=== PATIENT | male | born 1930 | race Caucasian/White ===

== ENCOUNTER 2017-08-15 07:15 | Day surgery (SDC) | payer OTHER ==
[~2017-08-15] VITALS: Ht 180.3 cm; Wt 88.0 kg
[2017-08-15] VITALS (9 sets, daily range): BP systolic 127–167; BP diastolic 65–93
[~2017-08-15 07:15] MED LIST: ceFAZolin sod 1gm in NS 55ml IVPB ONE
[2017-08-15] MEDS ORDERED: Sterile Water Irrig 1000ml IRRIG ONE (07:16)
[2017-08-15] MEDS ORDERED: Lidocaine 1% MPF 10mg/ml 5ml ONE (07:16)
[2017-08-15] MEDS ORDERED: Midazolam 2mg/2ml Inj ONE (07:16)
[2017-08-15] MEDS ORDERED: LR 1000ml ONE (07:16)
[2017-08-15] MEDS ORDERED: Neostigmine 1mg/ml 10ml Inj ONE (07:16)
[2017-08-15] MEDS ORDERED: Propofol 200mg/20ml IV ONE (07:16)
[2017-08-15] MEDS ORDERED: Zemuron 50mg/5ml Inj IV ONE (07:16)
[2017-08-15] MEDS ORDERED: fentaNYL 100 mcg/2 mL IV ONE (07:16)
[2017-08-15] MEDS ORDERED: Glycopyrrolate 0.2mg/ml 1ml Vial ONE (07:16)
[2017-08-15] MEDS ORDERED: NS Irrig 1000ml ONE (07:16)
--- NOTE | 2017-08-15 07:51 | Anethesia Preoperative Eval ---
Anesthesia Pre-op PMH/ROS General Date of Evaluation: Aug 15, 2017 Anesthesiologist: Levi ASA Score: ASA 3 Mallampati Score Class I : Soft palate, uvula, fauces, pillars visible Class II: Soft palate, uvula, fauces visible Class III: Soft palate, base of uvula visible Class IV: Only hard plate visible Mallampati Classification: Class III Surgeon: Jose Juan Diagnosis: Deviated septum Surgical Procedure: septoplasty SMR/TURBS Anesthesia History: none Family History: no anesthesia problems Allergies: Coded Allergies: Horse Serum Proteins (Unverified Allergy, Unknown, 08/15/17) not known reaction. Patient was just told when he was in the service Medications: see eMAR Past Medical History Cardiovascular: Reports: HTN, CAD - s/p stents x1, other - HLD, Denies: NC, valve dz, arrhythmia Pulmonary: Reports: asthma, Denies: COPD, NAUN, other Gastrointestinal/Genitourinary: Reports: other - h/o bladder Ca s/p TURBT, Denies: GERD, CRI, ESRD Neurologic/Psychiatric: Denies: dementia, CVA, depression/anxiety, TIA, other Endocrine: Reports: DM, Denies: hypothyroidism, steroids, other HEENT: Reports: other - right eye blindness, Denies: cataract (L), cataract (R), glaucoma, [place] (L), [place] (R) Hematology/Immune: Denies: anemia, DVT, bleeding disorder, other Musculoskeletal/Integumentary: Reports: OA, other - Left hand numbness/tingling ; denies any cervical radiculopathy or pain. Can fully flex and extend neck without problems, Denies: RA, DJD, DDD, edema Other: obesity PSxH Narrative: septoplasty, vitrectomy x5, T&A, hiatal hernia repair, TURBT, Bilateral TKRs, Left THR, Left shoulder arthroscopy/rotator cuff repair Anesthesia Pre-op Phys. Exam Physician Exam see chart Constitutional: NAD Neurologic: other - Left hand numbness/tingling, opaque right eye Cardiovascular: RRR Respiratory: CTA Airway Exam Mallampati Score: Class III MO: limited ROM: full Teeth: missing, intact Anesthesia Pre-op A/P Labs see chart Studies Pre-op Studies: EKG - 1st degree AV block, other - recent stress test-negative Risk Assessment & Plan Assessment: ASA III Plan: GA Status Change Before Surgery: No Pre-Antibiotics Drug: CYNTHIA URIOSTEGUI M.D. Aug 15, 2017 07:51
[2017-08-15] MEDS ORDERED: TOPROL XL100 MG ORAL (08:11)
[2017-08-15] MEDS ORDERED: GLYBURIDE2.5 MG PO (08:12)
[2017-08-15] MEDS ORDERED: ADVAIR 250-501 EACH INH (08:13)
[2017-08-15] MEDS ORDERED: ATORVASTATIN CA40 MG ORAL (08:14)
[2017-08-15] MEDS ORDERED: ASPIR 8181 MG ORAL (08:15)
[2017-08-15] MEDS ORDERED: LORAZEPAM0.5 MG ORAL (08:17)
[2017-08-15] MEDS ORDERED: Cocaine HCl 4% 4ml vial TOPIC ONE (08:54)
[2017-08-15] MEDS ORDERED: Bacitracin Oint 15gm Tube TOPIC ONE (08:54)
[2017-08-15] MEDS ORDERED: Oxymetazoline 0.05% Na Spray 30ml NASAL ONE (08:54)
[2017-08-15] MEDS ORDERED: Lidocaine 1% 10mg/ml/EPI 0.01mg/ml 50ml INJ ONE (08:54)
--- NOTE | 2017-08-15 09:25 | Pre-Procedure Note/Attestation ---
Pre-Procedure Note/Attestation Complete Prior to Procedure Planned Procedure: not applicable Procedure Narrative: nasal trauma with resulting nasal obstruction and obstructing nasal deformity Indications for Procedure Pre-Operative Diagnosis: nasal and septal fractures, obstructing nasal deformities, bilateral hypertrophied inferior turbinates Attestation I attest that I discussed the nature of the procedure; its benefits; risks and complications; and alternatives (and the risks and benefits of such alternatives ), prior to the procedure, with the patient (or the patient's legal business center representative). I attest that, if there was a reasonable possibility of needing a blood transfusion, the patient (or the patient's legal business center representative) was given the [place] [employer] standardized written summary, pursuant to the Zeferino Oswald Blood Safety Act ([place] Health and Safety Code # 1645, as amended). I attest that I re-evaluated the patient just prior to the surgery and that there has been no change in the patient's H&P, except as documented below: LUCIE ORTEGA Aug 15, 2017 09:25
--- NOTE | 2017-08-15 10:37 | Immediate Post-Op Evaluation ---
Immediate Post-Op Evalulation Immediate Post-Op Evalulation Procedure: Septoplasty SMR/TURBS Date of Evaluation: Aug 15, 2017 Time of Evaluation: 12:59 IV Fluids: 1.8L Blood Products: 0 Estimated Blood Loss: 25 Urinary Output: 150 Blood Pressure Systolic: 160 Blood Pressure Diastolic: 87 Pulse Rate: 93 Respiratory Rate: 16 O2 Sat by Pulse Oximetry: 96 Temperature (Fahrenheit): 99 Pain Score (1-10): 0 Nausea: No Vomiting: No Complications 0 Patient Status: awake, reacts, patent, none Hydration Status: adequate Drug: Ancef 2g Given Within 1 Hr of Incision: Yes Time Given: 09:50 CYNTHIA STRICKLAND M.D. Aug 15, 2017 10:37
[2017-08-15] MEDS ORDERED: Betadine 10% Oint 15gm TOPIC ONE (12:23)
--- NOTE | 2017-08-15 12:59 | Brief Operative Note ---
Immediate Post Operative Note Operative Note Pre-op Diagnosis: nasal and septal fractures, obstructing nasal deformities, bilateral hypertrophied inferior turbinates Procedure: open reduction and repair of nasal and septal fractures, bilateral inferior turbinectomies with intramural coagulation, repair of obstructing traumatic nasal deformity with septal cartilage implant and repair of collapsed right internal valve Post-op Diagnosis: same as pre-op Surgeon: Yoav Manzano M.D. Additional Surgeons: none Anesthesiologist: Becka Cifuentes Anesthesia: general Specimen: yes - septum Complications: none Condition: stable Fluids: ringers lactate Estimated Blood Loss: minimal Drains: none Packing: Telfa Implant(s) used?: Yes - septal cartilage YOAV MANZANO Aug 15, 2017 12:59
[2017-08-15] MEDS ORDERED: LR 1000ml 1,000 ML IVLG SCH (13:04)
--- NOTE | 2017-08-15 13:04 | 48 Hour Post Anesthesia Eval ---
Post Anesthesia Evaluation Procedure: Septoplasty SMR/TURBS Date of Evaluation: Aug 15, 2017 Time of Evaluation: 15:10 Blood Pressure Systolic: 159 0: 90 Pulse Rate: 69 - 2 Respiratory Rate: 20 Temperature (Fahrenheit): 97.2 O2 Sat by Pulse Oximetry: 96 Airway: patent Nausea: No Vomiting: No Pain Intensity: 0 Hydration Status: adequate Cardiopulmonary Status: at baseline Mental Status/LOC: patient returned to baseline Post-Anesthesia Complications: 0 Follow-up care needed: ready to discharge CYNTHIA STRICKLAND M.D. Aug 15, 2017 13:04
[2017-08-15] MEDS ORDERED: Hydromorphone 0.5mg/0.5ml inj IVP PRN (13:15)
[2017-08-15] MEDS ORDERED: fentaNYL 100 mcg/2 mL IV PRN (13:15)
[2017-08-15] MEDS ORDERED: DiphenhydrAMINE 50mg/ml Inj IVP PRN (13:15)
--- NOTE | 2017-08-16 05:45 | Operative Note - Dictated ---
DATE OF OPERATION: 08/15/2017 SURGEON: Yoav Manzano M.D. ANESTHESIOLOGIST: Dr. Otero. ANESTHESIA: General. PREOPERATIVE DIAGNOSES: 1. Nasal septal fractures. 2. Bilateral hypertrophied inferior turbinates. 3. Traumatic nasal obstruction. POSTOPERATIVE DIAGNOSES: 1. Nasal septal fractures. 2. Bilateral hypertrophied inferior turbinates. 3. Traumatic nasal obstruction. PROCEDURES: 1. Open reduction repair of nasal septal fractures. 2. Bilateral inferior turbinectomies with intramural coagulation. 3. Repair of right internal valve collapse with rotation advancement flap and repair of the right mid vault collapse with septal cartilage implant. INDICATION FOR SURGERY: The patient is an 86-year-old male, who experienced nasal trauma in June 2017 when he fell on his face. At the time of the injury, the patient sustained nasal septal fractures. Despite medication and an extensive period of time, his nasal obstruction has persisted and he is now being brought to the operating room for surgical repair. FINDINGS AT SURGERY: Revealed the entire nasal pyramid to be deviated to the left with collapse of the right mid vault area. The columella was found to be deviated to the right at 25 to 30 degree angle with narrowing of the right nasal inflow tract. The septum was found to be severely convex to the right pushing up against the right inferior turbinate and the lateral nasal wall creating almost complete obstruction of the right nasal passageway. Both inferior turbinates were significantly hypertrophied further compromising his nasal airways Additionally the patient was noted to have collapse of the right internal valve and the right mid vault area contributing to the right nasal airway obstruction. PROCEDURE AND FINDINGS: The patient was brought to the operating room while premedicated and have received a preoperative antibiotics. He was then placed in supine position on the operating room table. After the patient underwent satisfactory endotracheal intubation, he was given intravenous sedation. Since the patient has many medical problems, the injection had to be performed slowly to help control his blood pressure and any arrhythmias that may develop. A sterile Q-tip saturated with Betadine were used to sterilize the intranasal cavity. Approximately 15 mL of 1% Xylocaine with 1:100,000 epinephrine were used to inject the septal frameworks. The patient's blood pressure cathi at the end of the injection and so the injections were discontinued and his pressure returned to normal. The nasal cavity was then packed with less than 200 mg of cocaine intranasal packing. It is of note due to the patient's severe right nasal airway obstruction that only a small amount of packing could be inserted. A sterile marking pen was used to outline the area of the right mid vault collapse and the patient was then prepped and draped in the usual sterile fashion. After a suitable period of vasoconstriction, the packing was removed. A right inferior septal incision was made and a right mucoperichondrial and mucoperiosteal flap was eventually elevated running into significant scar tissue. An incision was made between the cartilage and bony septum and a left mucoperiosteal flap was then elevated. Examination revealed a right large obstructing superior bone spur further compromising his airway.That portion of overriding and obstructing perpendicular plate of the ethmoid and vomer bone were incised in strips, throughout the attachments and removed from the field of operation. A similar procedure was performed on the cartilage maintaining good inferior and anterior support. Re-examination still revealed the inferior aspect of the septum was deviated to the right as was the columella. This inferior aspect of the cartilagenous septum was extensively crosshatched and mobilized in a more midline position for breathing. Bipolar intramural coagulation of both turbinates was then performed. An incision was made on the undersurface of both inferior turbinates and mucosa stripped from the underlying bone. The inferior turbinates were then outfractured and small piece of bone removed from the pocket. Attention was now turned to the external obstructing nasal deformity. With the external architecture having been injected with approximately 8 mL of 1% Xylocaine 1:100,000 epinephrine approximately 15 to 20 minutes before the intranasal surgery was accomplished. A #15 blade was used to make incision between the upper and lower lateral cartilages and carried toward the septal angle. An incision was then made vertically just inferior to the collapsed internal valve and carried down thru the mucoperichondrium to the septal cartilage. A vertical incision was made with a 15 blade superior to the collapsed internal valve and connected by a horizontal to inferior incision. The whole region was then from the underlying perichondrium and rotated anteriorly and laterally. This now alleviated the obstructing position of the internal valve. A piece of septal cartilage, which had been previously harvested from the septum and which had been placed in Betadine solution was now brought into the field of operation. The septal cartilage was cut to fit the area corresponding to the right mid vault area and placed back in Betadine. Two sutures of 5-0 plain were placed thru the superior and inferior aspect of the septal cartilage. A pocket was created using blunt dissection beneath the area of the outlined right middle vault and after the bleeding well controlled, the pocket was then rinsed with Betadine solution. After a suitable period of time had elapsed to provide sterilization of the pocket, the superior suture was placed in the pocket and brought out through the very superior aspect of the area outlined. A similar procedure was performed with the inferior suture of 5-0 plain inferiorly. The cartilage was slid into place. The sutures were then tightened and examination revealed the cartilage to be in good position with alleviation of the mid vault collapse. Steri-Strips were then used to hold the 5-0 plain securely to the skin surface and prevent the cartilage from slipping. The pocket was again rinsed with Betadine solution. Re-examination still revealed the nasal architecture to be significantly deviated to the left. This was able to be corrected by fractured the left nasal bone using a lateral osteotomy and then a transverse osteotomy, which allowed the nasal pyramid to be mobilized in a more midline position for breathing. Re-examination now revealed the nasal architecture to be in midline position. Re-examination revealed the patient had a good bilateral nasal airway. All blood was suctioned from then nose and nasopharynx area. The right mid vault pocket was again rinsed with Betadine solution. A 4-0 plain was used to close between the cartilage incision as well as to secure the rotated internal nasal valve into its new non obstructing position. the area. A 4-0 plain was also used to close the septal incision as well as to splint of the septum. Telfa coated with Betadine ointment, was placed intranasally and secured with a suture of 3-0 silk. A sterile dressing consisting of paper adhesive tape and a cast were then secured in place and the procedure was terminated. The patient was catheterized at the end of the procedure and was found to have only 150 mL in his bladder. The [place] was left in place to evaluate the urine flow postoperatively. The patient tolerated the procedure well and was awakened upon the operating room table and sent to the recovery room in good condition. Sponge and needle count was found to be correct. Estimated blood loss was 30 mL. Yoav Manznao M.D. DR: SHIV JOB#: [id number] CC: SOLA
[2017-08-17 07:22] VITALS: BP 159/90
== END 2017-08-15 15:10 | disposition home or self-care (01) ==
LOC: SUR 07:15
DX: S02.2XXA Fracture of nasal bones, initial encounter for closed fracture (principal); J34.3 Hypertrophy of nasal turbinates; J34.89 Other specified disorders of nose and nasal sinuses; E11.9 Type 2 diabetes mellitus without complications; I25.10 Atherosclerotic heart disease of native coronary artery without angina pectoris; I10 Essential (primary) hypertension; E78.5 Hyperlipidemia, unspecified; Z95.5 Presence of coronary angioplasty implant and graft; E78.00 Pure hypercholesterolemia, unspecified; I44.0 Atrioventricular block, first degree; Z79.82 Long term (current) use of aspirin; Z82.3 Family history of stroke; Z83.3 Family history of diabetes mellitus; Z82.49 Family history of ischemic heart disease and other diseases of the circulatory system; Z96.649 Presence of unspecified artificial hip joint; Z96.659 Presence of unspecified artificial knee joint; W19.XXXA Unspecified fall, initial encounter; Y93.9 Activity, unspecified; Y92.9 Unspecified place or not applicable
CPT/HCPCS: 30520; 30802; 82962; J1170; J2250; J2405; J2704; J2710; J3010; J7120; 94003; 94150